=== PATIENT | male | born 1985 | race Hispanic/Latino ===

== ENCOUNTER 2017-06-27 04:34 | Emergency (ER) | payer OTHER ==
[2017-06-27 05:47] LABS: Basophils % (Auto) 0.3 % (0.0-1.8); Eosinophils # (Auto) 0.1 K/mm3 (0.0-0.4); Eosinophils % (Auto) 1.2 % (0.0-4.3); Hematocrit 41.2 % (35.5-45.6); Hemoglobin 13.9 gm/dl (11.8-15.2); Lymphocytes # (Auto) 1.6 K/mm3 (1.2-5.4); Lymphocytes % (Auto) 17.2 % (13.4-35.0); Mean Corpuscular HGB Conc 34 % (32-34); Mean Corpuscular Hemoglobin 29 pg (28-32); Mean Corpuscular Volume 85 fl (84-94); Monocytes # (Auto) 0.7 K/mm3 (0.0-0.8); Monocytes % (Auto) 7.2 % (0.0-7.3); Platelet Count 246 K/mm3 (140-440); Red Blood Count 4.87 M/mm3 (3.65-5.03); Red Cell Distribution Width 14.9 % (13.2-15.2)
[2017-06-27 05:55] LABS: BUN/Creatinine Ratio 8; Blood Urea Nitrogen 8 mg/dL (9-20); Calcium 8.6 mg/dL (8.4-10.2); Hemolysis Index 1
--- NOTE | 2017-06-27 07:23 | Emergency Department Report ---
ED Psych HPI - General Chief Complaint: Psych Stated Complaint: DETOX Time Seen by Provider: 06/27/17 07:22 Source: patient Mode of arrival: Ambulatory - History of Present Illness Initial Comments: Patient states that he's been addicted to opiate pain medication since having a neck injury playing college sports. He is currently abusing narcotics both orally and IV to include sentinel and heroin. He states that despite his last dose of heroin being at 3 AM last night that he is withdrawing. He states he has attempted to stop once on his own but never has had any counseling. He is requesting assistance with narcotics withdrawal. The patient denies any pruritus. He does not have a stuffy nose. He does complain of being anxious, jittery nauseated and has vomited 1. He has not measured his temperature recently and does not think he has had a fever. Patient denies any sequelae of opiate abuse known. MD Complaint: other -: hour(s) History of same: Yes Quality: intermittent Improves With: none Worsens With: none Context: recent drug abuse Associated Symptoms: nausea, vomiting. denies: confusion, headache, shortness of breath, syncope Treatments Prior to Arrival: none - Related Data Home Medications Medication Instructions Recorded Confirmed Last Taken Dextroamphetamine/Amphetamine 20 mg PO DAILY 11/02/13 11/02/13 Unknown [Adderall 10 mg Tablet] Previous Rx's Medication Instructions Recorded Last Taken Type Ibuprofen [Motrin] 600 mg PO Q6H PRN #20 tablet 07/27/13 Unknown Rx HYDROcodone/APAP 10-325 [[place] 1 each PO Q8HR PRN #20 tablet 11/02/13 Unknown Rx 10/325] Allergies Allergy/AdvReac Type Severity Reaction Status Date / Time hydroxyzine HCl [From Atarax] Allergy Rash Verified 05/15/13 04:30 promethazine HCl Allergy Nausea Verified 05/15/13 04:30 [From Phenergan] ED Review of Systems ROS: Stated complaint: DETOX Other details as noted in HPI Constitutional: denies: chills, fever Eyes: denies: eye pain, eye discharge, vision change ENT: denies: ear pain, throat pain Respiratory: denies: cough, shortness of breath, wheezing Cardiovascular: denies: chest pain, palpitations Endocrine: no symptoms reported Gastrointestinal: nausea, vomiting. denies: abdominal pain, diarrhea Genitourinary: denies: urgency, dysuria Musculoskeletal: denies: back pain, joint swelling, arthralgia Skin: denies: rash, lesions Neurological: denies: headache, weakness, paresthesias Psychiatric: denies: anxiety, depression Hematological/Lymphatic: denies: easy bleeding, easy bruising ED Past Medical Hx - Past Medical History Previous Medical History?: Yes Additional medical history: Tetanus status is up-to-date, drug abuse - Surgical History Past Surgical History?: Yes Additional Surgical History: left ankle surgery, left knee arthroscopy, inquinal herniorrhaphy - Social History Smoking Status: Current Every Day Smoker Substance Use Type: Cocaine, Heroin, Prescribed - Medications Home Medications: Home Medications Medication Instructions Recorded Confirmed Last Taken Type Ibuprofen [Motrin] 600 mg PO Q6H PRN #20 tablet 07/27/13 11/02/13 Unknown Rx Dextroamphetamine/Amphetamine 20 mg PO DAILY 11/02/13 11/02/13 Unknown History [Adderall 10 mg Tablet] HYDROcodone/APAP 10-325 [[place] 1 each PO Q8HR PRN #20 tablet 11/02/13 Unknown Rx 10/325] ED Physical Exam - General Limitations: No Limitations General appearance: alert, anxious - Head Head exam: Present: atraumatic, normocephalic - Eye Eye exam: Present: normal appearance, PERRL, EOMI. Absent: scleral icterus - ENT ENT exam: Present: mucous membranes moist - Neck Neck exam: Present: normal inspection. Absent: tenderness, meningismus - Respiratory Respiratory exam: Present: normal lung sounds bilaterally. Absent: respiratory distress - Cardiovascular Cardiovascular Exam: Present: regular rate, normal rhythm. Absent: systolic murmur, diastolic murmur, rubs, gallop - GI/Abdominal GI/Abdominal exam: Present: soft, normal bowel sounds. Absent: distended, tenderness, guarding, rebound, rigid - Rectal Rectal exam: Present: deferred - Extremities Exam Extremities exam: Present: normal inspection - Back Exam Back exam: Present: normal inspection - Neurological Exam Neurological exam: Present: alert, oriented X3, CN II-XII intact. Absent: motor sensory deficit - Psychiatric Psychiatric exam: Present: normal affect, anxious - Skin Skin exam: Present: warm, dry, intact, normal color. Absent: rash ED Course Vital Signs 03/16/18 03/16/18 05:23 08:31 Temperature 98.7 F 98.0 F Pulse Rate 73 73 Respiratory 17 15 Rate Blood Pressure 140/82 Blood Pressure 136/78 [Left] O2 Sat by Pulse 99 96 Oximetry - Reevaluation(s) Reevaluation #1: Patient has been seen by the mental health counselor. The counselor states that he may go by private vehicle as a walk-in to [facility]. He states that he will call ahead to notify them that the patient may be coming. This is not an official transfer. The patient is discharged in a medically stable condition. 06/27/17 09:08 ED Medical Decision Making - Lab Data Result diagrams: 06/27/17 05:29 06/27/17 05:29 Laboratory Results - last 24 hr 06/27/17 06/27/17 06/27/17 05:29 05:29 05:29 WBC RBC Hgb Hct MCV MCH MCHC RDW Plt Count Lymph % (Auto) Graham % (Auto) Eos % (Auto) Baso % (Auto) Lymph # Graham # Eos # Baso # Seg Neutrophils % Seg Neutrophils # Sodium 139 Potassium 3.5 L Chloride 102.0 Carbon Dioxide 25 Anion Gap 16 BUN 8 L Creatinine 1.0 Estimated GFR > 60 BUN/Creatinine Ratio 8 Glucose 97 Calcium 8.6 Salicylates < 0.3 L Plasma/Serum Alcohol < 0.01 06/27/17 05:29 WBC 9.6 RBC 4.87 Hgb 13.9 Hct 41.2 MCV 85 MCH 29 MCHC 34 RDW 14.9 Plt Count 246 Lymph % (Auto) 17.2 Graham % (Auto) 7.2 Eos % (Auto) 1.2 Baso % (Auto) 0.3 Lymph # 1.6 Graham # 0.7 Eos # 0.1 Baso # 0.0 Seg Neutrophils % 74.1 H Seg Neutrophils # 7.1 Sodium Potassium Chloride Carbon Dioxide Anion Gap BUN Creatinine Estimated GFR BUN/Creatinine Ratio Glucose Calcium Salicylates Plasma/Serum Alcohol Laboratory Results - last 24 hr 06/27/1718 06/27/17 05:29 05:29 05:29 WBC RBC Hgb Hct MCV MCH MCHC RDW Plt Count Lymph % (Auto) Graham % (Auto) Eos % (Auto) Baso % (Auto) Lymph # Graham # Eos # Baso # Seg Neutrophils % Seg Neutrophils # Sodium 139 Potassium 3.5 L Chloride 102.0 Carbon Dioxide 25 Anion Gap 16 BUN 8 L Creatinine 1.0 Estimated GFR > 60 BUN/Creatinine Ratio 8 Glucose 97 Calcium 8.6 Urine Color Urine Turbidity Urine pH Ur Specific [place] Urine Protein Urine Glucose (UA) Urine Ketones Urine Blood Urine Nitrite Urine Bilirubin Urine Urobilinogen Ur Leukocyte Esterase Urine WBC (Auto) Urine RBC (Auto) Urine Mucus Salicylates < 0.3 L Urine Opiates Screen Urine Methadone Screen Acetaminophen < 15.0 Ur Barbiturates Screen Ur Phencyclidine Scrn Ur Amphetamines Screen U Benzodiazepines Scrn Urine Cocaine Screen U Marijuana (THC) Screen Drugs of Abuse Note Plasma/Serum Alcohol 06/27/17 06/27/17 06/27/17 05:29 05:29 Unknown WBC 9.6 RBC 4.87 Hgb 13.9 Hct 41.2 MCV 85 MCH 29 MCHC 34 RDW 14.9 Plt Count 246 Lymph % (Auto) 17.2 Graham % (Auto) 7.2 Eos % (Auto) 1.2 Baso % (Auto) 0.3 Lymph # 1.6 Graham # 0.7 Eos # 0.1 Baso # 0.0 Seg Neutrophils % 74.1 H Seg Neutrophils # 7.1 Sodium Potassium Chloride Carbon Dioxide Anion Gap BUN Creatinine Estimated GFR BUN/Creatinine Ratio Glucose Calcium Urine Color Yellow Urine Turbidity Clear Urine pH 5.0 Ur Specific [place] 1.025 Urine Protein <15 mg/dl Urine Glucose (UA) Neg Urine Ketones 20 Urine Blood Neg Urine Nitrite Neg Urine Bilirubin Neg Urine Urobilinogen 2.0 Ur Leukocyte Esterase Neg Urine WBC (Auto) 4.0 Urine RBC (Auto) 1.0 Urine Mucus 3+ Salicylates Urine Opiates Screen Urine Methadone Screen Acetaminophen Ur Barbiturates Screen Ur Phencyclidine Scrn Ur Amphetamines Screen U Benzodiazepines Scrn Urine Cocaine Screen U Marijuana (THC) Screen Drugs of Abuse Note Plasma/Serum Alcohol < 0.01 06/27/17 Unknown WBC RBC Hgb Hct MCV MCH MCHC RDW Plt Count Lymph % (Auto) Graham % (Auto) Eos % (Auto) Baso % (Auto) Lymph # Graham # Eos # Baso # Seg Neutrophils % Seg Neutrophils # Sodium Potassium Chloride Carbon Dioxide Anion Gap BUN Creatinine Estimated GFR BUN/Creatinine Ratio Glucose Calcium Urine Color Urine Turbidity Urine pH Ur Specific [place] Urine Protein Urine Glucose (UA) Urine Ketones Urine Blood Urine Nitrite Urine Bilirubin Urine Urobilinogen Ur Leukocyte Esterase Urine WBC (Auto) Urine RBC (Auto) Urine Mucus Salicylates Urine Opiates Screen Presumptive positive Urine Methadone Screen Presumptive negative Acetaminophen Ur Barbiturates Screen Presumptive positive Ur Phencyclidine Scrn Presumptive negative Ur Amphetamines Screen Presumptive negative U Benzodiazepines Scrn Presumptive negative Urine Cocaine Screen Presumptive positive U Marijuana (THC) Screen Presumptive positive Drugs of Abuse Note Disclamer Plasma/Serum Alcohol Critical care attestation.: If time is entered above; I have spent that time in minutes in the direct care of this critically ill patient, excluding procedure time. ED Disposition Clinical Impression: Polysubstance abuse Disposition: [id number] TO HOME OR SELFCARE Is pt being admited?: No Does the pt Need Aspirin: No Condition: Stable Instructions: Polysubstance Abuse (ED) Additional Instructions: He has been directed to [facility] as a possible outpatient resource. Return to the emergency department any acute change or problem. Primary care follow-up at this outside medical clinic. Referrals: [facility] [Provider Group] - 3-5 Days Time of Disposition: 09:10
[2017-06-27] MEDS ORDERED: NACL 0.9% 1000 ML 1,000 ML IV ONE (07:32)
[2017-06-27] MEDS ORDERED: ATIVAN PO ONE (07:32)
[2017-06-27] MEDS ORDERED: ZOFRAN IV ONE (07:32)
[2017-06-27 07:42] LABS: Amphetamine Screen,Urine PRESUMPTIVE NEGATIVE; Benzodiazepines Screen,Urine PRESUMPTIVE NEGATIVE; Methadone Screen,Urine PRESUMPTIVE NEGATIVE
[2017-06-27 07:51] LABS: Bilirubin,Urine NEG (Negative); Blood,Urine NEG (Negative); Color,Urine Yellow (Yellow); Mucus,Urine 3+ /HPF; Protein,Urine <15 mg/dL mg/dL (Negative)
[2017-06-27 07:56] LABS: Cannabinoid Screen,Urine PRESUMPTIVE POSITIVE; Cocaine Screen,Urine PRESUMPTIVE POSITIVE; Opiate Screen,Urine PRESUMPTIVE POSITIVE
[2017-06-27 08:34] VITALS: BP 136/78
== END 2017-06-27 10:51 | disposition home or self-care (01) ==
LOC: ED 04:34
DX: F19.10 Other psychoactive substance abuse, uncomplicated (principal); F17.200 Nicotine dependence, unspecified, uncomplicated; F14.10 Cocaine abuse, uncomplicated; F11.10 Opioid abuse, uncomplicated; Z88.8 Allergy status to other drugs, medicaments and biological substances
CPT/HCPCS: 36415; 80048; 80307; 81001; 85025; 96361; 96374; 99284; G0480; J2405; J7030; 80320